=== PATIENT | male | born 1965 | race Caucasian/White ===

== ENCOUNTER → 2019-08-25 13:06 | Outpatient (CLI) | payer OTHER, SELFPAY ==
--- NOTE | 2019-08-25 13:10 | RAD_ITS ---
STUDY: X-RAY - RIGHT HAND, ATTENTION THE FIFTH FINGER REASON FOR EXAM: Male, 53 years old. Pain following injury. TECHNIQUE: 3 view(s) of the finger were obtained. COMPARISON: None. FINDINGS: Normal metacarpal head. Normal metacarpophalangeal joint. Normal proximal phalanx. Normal middle phalanx. Displaced fracture of the tuft of the distal phalanx of the fifth digit. Normal proximal interphalangeal joint. Normal distal interphalangeal joint. Soft tissue laceration. RAD/Finger(s) Min 2 Views IMPRESSION: Soft tissue laceration with avulsion of the tuft of the distal phalanx of the fifth digit. Electronically Signed: Samir Tinajero, at 13:34 EDT , Service support ,
== END ==
PROVIDERS: Referring Provider Physician Assistant; Visit Provider Physician Assistant
DX: S69.91XA Unspecified injury of right wrist, hand and finger(s), initial encounter (principal)
CPT/HCPCS: 73140

== ENCOUNTER → 2019-08-27 09:12 | Outpatient (CLI) | payer OTHER, SELFPAY ==
[2019-08-27 09:08] VITALS: BMI 35.4
--- NOTE | 2019-08-27 09:13 | RAD_ITS ---
STUDY: X-RAY - LEFT HAND, ATTENTION FIFTH FINGER REASON FOR EXAM: Male, 53 years old. Pain after acute injury TECHNIQUE: 3 view(s) of the finger were obtained. COMPARISON: Prior exam of August 25, 2019 FINDINGS: Normal metacarpal head. Normal metacarpophalangeal joint. Normal proximal phalanx. Normal middle phalanx. Acute longitudinal fracture through the terminal tuft of the distal phalanx to the lateral side of midline which has been reduced since the prior examination which demonstrated almost complete avulsion of this fragment and distal soft tissues of the finger. Normal proximal interphalangeal joint. Normal distal interphalangeal joint. RAD/Finger(s) Min 2 Views IMPRESSION: Anatomic reduction of the longitudinal fracture of the terminal tuft of the distal phalanx of the fifth finger and associated soft tissues appearing in excellent alignment from preceding exam. Electronically Signed: Nay Prajapati MD at 17:19 EDT , Service support ,
== END ==
PROVIDERS: Referring Provider Orthopaedic Surgery; Visit Provider Orthopaedic Surgery
DX: S62.636B Displaced fracture of distal phalanx of right little finger, initial encounter for open fracture (principal); X58.XXXA Exposure to other specified factors, initial encounter; Y93.9 Activity, unspecified; Y92.9 Unspecified place or not applicable; Y99.9 Unspecified external cause status
CPT/HCPCS: 73140

== ENCOUNTER 2019-10-27 10:30 | Outpatient (RCR) | payer OTHER, BC, SELFPAY ==
[2019-09-24 09:46] VITALS: BMI 35.4
[2019-10-01 09:16] VITALS: BMI 35.4
--- NOTE | 2019-10-01 11:43 | HP.OTEVAL_ITS ---
Patient's Visit Information ANA MONTGOMERY II is a 53 year old M, referred to Occupational Therapy by Gaurav Wu MD, with a diagnosis of Crush Injury; Displaced fx of distal phalanx of R PF; Gangrene. Date of Evaluation: 10/01/19 Occupational Therapist: Cindy Correia, OTR/L - Subjective Subjective: Ana arrived and noted that he is s/p crush injury on 08/25/19 in which he got right picky finger stuck in air vice. He noted injury occured at work. 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 - ADLs Dressing: Pants, Socks Miscellaneous: Use hand tools, Use power tools, Take DVD out of case & insert in player, Drive Comments: Off work currently for 4 weeks or until first 2019. Work does not have light duty and he is unable to completed use full duty use of R hand at this time. Additionally, he is at increased risk of developing infection with wound. - Pain R PF 0 Pain Intensity Range: 0, 1, 3 - Objective Objective/Observation: gangrene with black ishemic tissue of tip of R PF; limited ROM; surrounding tissue pink and healing. 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 - ROM MP: R 0-71, L WFL PIP: R 0-62, L WFL DIP: R 0-49, L WFL ROM Comments: Increased stiffness around R PF DIP. - Strength Electrical Installer: R 69, L 84 Lateral Pinch: R23, L 21 Tripod Pinch: R18 , L 16 Tip-to-Tip Pinch: R 14, L 10 - Edema DIP: PF R 6.5, L 5.5 cm - Sensation Ring: lateral R 3.62, L2.83 ; dorsal R 2.83, L 3.22 ; palmar R 3.84, L 2.44 - Quick DASH-Disab of Arm,Shoulder& Hand Quick DASH Score: 31.6650 - Goals Goal:: Ana to increase R hand cost estimating manager strength by 20-25 lbs to promote increased strength and stability of R hand to return to PLOF and al work-related tasks by d/c. Goal:: Ana to increased R PF to ROM similar to L RF to promote return of ROM to completed functional movements needed of R hand for ADl/IADls including work related tasks by d/c. Goal:: Ana to be (I) to manage pain of R PF to promote returning to PLOF by d/c. Goal:: Ana to be (i) to complete edema management techniques as needed to manage sweling of RPF 4/5 trials 80% of the time by d/c. 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 Goal:: Ana to be (i) to complete daily HEP to promote wound care, ROM, sensory reintegration of uninjury tissue & desensitzation of new tissue, strength, and edema and pain management 4/5 trials 80% of the time by d/c. - Rehabilitation General Assessment: Ana is s/p crush injury 08.25.19. He works at [employer] in [place] and noted that he got hand stuck in machine. His R PF is stiff with increased gangrene tissue at tip of PF. He is to start herberth taping RF and PF to promote increased ROM of PF. He will continue to cover tip for protection. His ROM is limited, and strength affected. He is R hand dominant. Skilled OT warranted to address wound and promote wound care, ROM, strength, and his ability to return to work-related tasks by d/c. Rehabilitation Potential: Good - Anticipated Interventions Anticipated Interventions: A/AAROM/PROM, Strengthening, Edema Control, Scar Care, Desensitization, Sensory Retraining, Wound Care, Modalities, Orthoses, Joint Protection/Energy Conservation, Ergonomic Education, Fine Motor Coord/[place], ADL Training, Caregiver Training, Home Program Other Interventions: static progressive splinting as needed after wound is at point to tolerate. - Visit Plan Frequency: 2x /Week Duration: 4 Weeks General Plan: Ana to complete OT for ROM, strength, sensory reintegration and desensitization techniques, edema management, wound care, and general ability to return to all work related tasks by d/c. TEXT: Thank you for the opportunity to evaluate your patient. For Medicare and Medicare HMO plans, please review the plan of care and approve it. It will need to be FAXED BACK to us at [phone] for Medicare purposes. Please let me know if there are questions or concerns regarding this plan of care. Physician Signature: Date:
--- NOTE | 2019-10-27 10:57 | HP.OTDCSUM ---
HP - OT D/C Summary It has been my pleasure to treat JOSAFAT MONTGOMERY II under orders from Gaurav Wu MD, for the diagnosis of Crush Injury; Displaced fx of distal phalanx of R PF; Gangrene for a total of 8 visit(s). Please see the following information for a summary of their discharge status. - Overall Improvement % Improvement: 60 - Objective Objective/Function: Completed reassessment 10/27/19 and results are as follows: ROM: R PF. - MCP R -13-0-74, L WFL. - PIP R 5-66, L WFL. - DIP R 20-51, L WFL. 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 - lateral R 26, L 29. - tripod R 23, L 24. - pincer R 20, L 18. proximal phalanx of PF R 7.8 cm, L 7.5 cm. Gangrene tip is off R PF. Finger tip in sensitive but tissue is healing nicely. - Goals Patient Goals: Regain Mobility, Regain Strength, Decrease Pain, Return to Work, Decrease Swelling/Stiffness, Improve Fine Motor Skills, Use Hand/Wrist/Arm Normally Again, Sleep Better, Decrease Tingling/Numbness, Increase ROM, Be More Independent in ADLS, Resume Former Household Responsibilities (Cooking,Cleaning,Yard, etc.), Resume Hobbies Other: static progressive splint as/if needed. Goal:: Josafat to increase R hand farmworker diversified crops strength by 20-25 lbs to promote increased strength and stability of R hand to return to PLOF and al work-related tasks by d/c. Goal:: Josafat to increased R PF to ROM similar to L RF to promote return of ROM to completed functional movements needed of R hand for ADl/IADls including work related tasks by d/c. Goal:: Josafat to be (I) to manage pain of R PF to promote returning to PLOF by d/c. Goal:: Josafat to be (i) to complete edema management techniques as needed to manage sweling of RPF 4/5 trials 80% of the time by d/c. 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 Goal:: Josafat to be (i) to complete daily HEP to promote wound care, ROM, sensory reintegration of uninjury tissue & desensitzation of new tissue, strength, and edema and pain management 4/5 trials 80% of the time by d/c. - Plan Plan: Today is last covered visit on C9. Chart will be discharged at this time. He has progressed but in general bilateral hands were a little swollen today and range of motion decreased. He has purchased finger sling to promote ROM. He has HEP he is to be completing to promote returning to PLOF. - D/C Information If there are questions or concerns regarding this patient's occupational therapy, please fell free to call me at [phone]. Thank you for the referral of this patient. Sincerely, Cindy Correia, OTR/L
== END 2019-10-27 19:00 | disposition home or self-care (01) ==
LOC: OT 10:30
PROVIDERS: Referring Provider Surgery; Visit Provider Surgery
DX: S62.636D Displaced fracture of distal phalanx of right little finger, subsequent encounter for fracture with routine healing (principal); M25.641 Stiffness of right hand, not elsewhere classified; I96 Gangrene, not elsewhere classified; S61.216D Laceration without foreign body of right little finger without damage to nail, subsequent encounter; R20.2 Paresthesia of skin; S67.196D Crushing injury of right little finger, subsequent encounter
CPT/HCPCS: 97110; 97140; 97166; 97168; 97530

== ENCOUNTER → 2021-06-09 16:59 | Outpatient (CLI) | payer OTHER, SELFPAY ==
[2020-06-10 15:40] VITALS: BMI 35.4
--- NOTE | 2021-06-09 17:03 | RAD_ITS ---
STUDY: X-RAY - RIGHT HAND, ATTENTION FIFTH FINGER REASON FOR EXAM: Pain and stiffness of right fifth finger, history of crush injury. TECHNIQUE: 3 view(s) of the finger were obtained. COMPARISON: Radiographs 08/27/2019. FINDINGS: Normal metacarpal head. Normal metacarpophalangeal joint. Normal proximal phalanx. Normal middle phalanx. There is chronic healed fracture deformity of the ungual tuft of the distal phalanx. Normal proximal interphalangeal joint. There is flexion deformity at the distal interphalangeal joint. RAD/Finger(s) Min 2 Views IMPRESSION: Interval development of flexion deformity of the fifth finger at the distal interphalangeal joint. Chronic healed fracture deformity of the ungual tuft. Electronically Signed: Rey David MD at 15:00 EDT Tel , Service support ,
== END ==
PROVIDERS: PCP Family Medicine; Referring Provider Surgery; Visit Provider Surgery
DX: S67.196A Crushing injury of right little finger, initial encounter (principal); S62.636B Displaced fracture of distal phalanx of right little finger, initial encounter for open fracture; I96 Gangrene, not elsewhere classified; M25.641 Stiffness of right hand, not elsewhere classified; R20.2 Paresthesia of skin; X58.XXXA Exposure to other specified factors, initial encounter; Y93.9 Activity, unspecified; Y92.9 Unspecified place or not applicable; Y99.9 Unspecified external cause status
CPT/HCPCS: 73140